=== PATIENT | female | born 1985 | race Caucasian/White ===

== ENCOUNTER 2024-06-28 18:13 | Emergency (ER) | payer BC ==
[~2024-06-28] VITALS: Ht 162.6 cm; Wt 131.1 kg
[2024-06-28 18:28] VITALS: BP 157/85; PULSE 80; RESP 22; TEMP 99.4; O2SAT 96
[2024-06-28 19:28] LABS: BILIRUBIN,URINE NEGATIVE (NEGATIVE); BLOOD, URINE 3+ (NEGATIVE); LEUKOCYTE ESTERASE ,URINE TRACE (NEGATIVE); NITRITE, URINE NEGATIVE (NEGATIVE); PROTEIN,URINE 2+ (NEGATIVE); UGLUCOSE NEGATIVE (NEGATIVE)
[2024-06-28 19:30] LABS: APPEARANCE,URINE BLOODY (CLEAR); COLOR,URINE BLOODY (YELLOW)
[2024-06-28 19:32] LABS: BACTERIA,URINE FEW /HPF (None Seen); CALCIUM OXALATE CRYSTALS,UR 0-10 /HPF (None Seen); RBC,URINE TOO NUMEROUS TO COUN /HPF (0-5); SQUAMOUS EPITHELIAL CELL,UR 4-10 (MOD) /LPF (0-3 (FEW))
[2024-06-28] MEDS ORDERED: ACET-8905 PO (20:19)
[2024-06-28] MEDS ORDERED: IBUP-2213 PO (20:19)
[2024-06-28] MEDS ORDERED: MEDR10TA PO (20:19)
[2024-06-28] MEDS ORDERED: CIPR500T4 PO (20:19)
[2024-06-28] MEDS: MORPHINE SULFATE 4 MG/ML SYR IM ONE (20:28)
== END 2024-06-28 20:29 | disposition home or self-care (01) ==
LOC: MED 18:13
DX: N39.0 Urinary tract infection, site not specified (principal); R03.0 Elevated blood-pressure reading, without diagnosis of hypertension
CPT/HCPCS: 76830; 81001; 81025; 87086; 96372; 99285; J2270; Q0092

== ENCOUNTER 2024-06-28 23:51 | Inpatient (IN) | payer BC, OTHER ==
[~2024-06-28] VITALS: Ht 162.6 cm; Wt 130.6 kg
[~2024-06-28 23:51] MED LIST: ACET-8905 PO; CIPR500T4 PO; IBUP-2213 PO; MEDR10TA PO
[2024-06-28 23:55] VITALS: BP 156/86; PULSE 90; RESP 24; O2SAT 97
[2024-06-29] VITALS (9 sets, daily range): BP systolic 129–138; BP diastolic 67–73; PULSE 83–109; RESP 18–20; TEMP 98.6–99.6; O2SAT 95–99
[2024-06-29] MEDS: NACL 0.9% 1,000 ML IV SCH ×2 (00:18→03:05)
[2024-06-29] MEDS: MORPHINE SULFATE 4 MG/ML SYR IVP ONE ×2 (00:21→02:33)
[2024-06-29] MEDS: LORazepam 2 MG/ML VIAL IVP ONE (00:22)
[2024-06-29 01:42] LABS: BASOPHILS # (AUTO) 0.1 K/uL (0.00-0.22); BASOPHILS % (AUTO) 0.6 % (0.0-2.0); EOSINOPHILS # (AUTO) 0.2 K/uL (0-0.4); EOSINOPHILS % (AUTO) 1.3 % (0.0-4.0); HEMOGLOBIN 9.3 g/dL (12.0-16.0); LYMPHOCYTES # (AUTO) 2.6 K/uL (2.5-16.5); LYMPHOCYTES % (AUTO) 16.6 % (20.5-51.1); MEAN CORPUSCULAR HEMOGLOBIN 18 pg (27-31); MEAN CORPUSCULAR HGB CONC 30 g/dL (33-37); MEAN CORPUSCULAR VOLUME 58.1 fL (80-94); MONOCYTES # (AUTO) 1.2 K/uL (0.8-1.0); MONOCYTES % (AUTO) 7.5 % (1.7-9.3); NEUTROPHILS # (AUTO) 11.6 K/uL (1.8-7.7); PLATELET COUNT (AUTO) 269 K/uL (140-450); RED BLOOD CELL COUNT(AUTO) 5.33 MIL/uL (4.20-5.40); RED CELL DISTRIBUTION WIDTH 19.9 % (11.6-13.7); WHITE BLOOD COUNT (AUTO) 15.7 K/uL (4.8-10.8)
[2024-06-29 01:53] LABS: ALBUMIN 3.1 g/dL (3.4-5.0); BILIRUBIN,DIRECT 0.1 mg/dL (0.0-0.3); TOTAL BILIRUBIN 0.3 mg/dL (0.0-1.0); TOTAL PROTEIN, SERUM 7.3 g/dL (6.4-8.2)
[2024-06-29] MEDS ORDERED: ONDANSETRON 4 MG/2 ML VIAL IVP PRN (03:05)
[2024-06-29] MEDS ORDERED: ALBUTEROL 0.083% 2.5 MG/3 ML NEBU INH PRN (03:05)
[2024-06-29] MEDS ORDERED: LORazepam 2 MG/ML VIAL IVP PRN (03:05)
[2024-06-29] MEDS ORDERED: cefTRIAXone 1,000 MG VIAL ONE (04:24)
[2024-06-29] MEDS: HYDROcodone/APAP 5/325 MG 1 TAB TAB PO PRN (05:00)
[2024-06-29] MEDS: TAMSULOSIN 0.4 MG CAP PO SCH (09:24)
[2024-06-29] MEDS: medroxyPROGESTERone 10 MG TAB PO SCH ×2 (09:24→13:25)
[2024-06-29] MEDS: MORPHINE SULFATE 2 MG/ML SYR IVP PRN (09:25)
[2024-06-29 14:59] LABS: APPEARANCE,URINE CLEAR (CLEAR); BILIRUBIN,URINE NEGATIVE (NEGATIVE); BLOOD, URINE 2+ (NEGATIVE); LEUKOCYTE ESTERASE ,URINE TRACE (NEGATIVE); NITRITE, URINE NEGATIVE (NEGATIVE); PROTEIN,URINE 2+ (NEGATIVE); UGLUCOSE NEGATIVE (NEGATIVE)
[2024-06-29 15:38] LABS: BACTERIA,URINE FEW /HPF (None Seen); MUCUS,URINE None Seen /LPF (None Seen); RBC,URINE TOO NUMEROUS TO COUN /HPF (0-5); SQUAMOUS EPITHELIAL CELL,UR 0-3 (FEW) /LPF (0-3 (FEW)); TRICHOMONAS,URINE None Seen /HPF (None Seen); WHITE BLOOD CELL CASTS,URINE None Seen /LPF (None Seen); YEAST,URINE None Seen /HPF (None Seen)
[2024-06-29 16:26] LABS: COLOR,URINE BLOODY (YELLOW)
[2024-06-30 01:15] VITALS: O2SAT 98
[2024-06-30 03:55] VITALS: BP 135/82; PULSE 84; RESP 18; TEMP 98.8; O2SAT 94
[2024-06-30 04:06] VITALS: O2SAT 96
[2024-06-30 05:30] LABS: BASOPHILS # (AUTO) 0.1 K/uL (0.00-0.22); BASOPHILS % (AUTO) 0.5 % (0.0-2.0); EOSINOPHILS % (AUTO) 0.2 % (0.0-4.0); HEMATOCRIT 28.7 % (36-48); HEMOGLOBIN 8.6 g/dL (12.0-16.0); LYMPHOCYTES # (AUTO) 1.4 K/uL (2.5-16.5); LYMPHOCYTES % (AUTO) 12.9 % (20.5-51.1); MEAN CORPUSCULAR HEMOGLOBIN 17 pg (27-31); MEAN CORPUSCULAR HGB CONC 30 g/dL (33-37); MEAN CORPUSCULAR VOLUME 57.2 fL (80-94); MONOCYTES % (AUTO) 9.2 % (1.7-9.3); NEUTROPHILS # (AUTO) 8.2 K/uL (1.8-7.7); NEUTROPHILS % (AUTO) 77.2 % (42.2-75.2); PLATELET COUNT (AUTO) 250 K/uL (140-450); RED BLOOD CELL COUNT(AUTO) 5.01 MIL/uL (4.20-5.40); WHITE BLOOD COUNT (AUTO) 10.6 K/uL (4.8-10.8)
[2024-06-30 05:45] LABS: ANION GAP 10.3 (8-16); CALCIUM 7.7 mg/dL (8.5-10.1); CARBON DIOXIDE 27.8 mmol/L (21-32); CREATININE 0.8 mg/dL (0.6-1.3); POTASSIUM 3.1 mmol/L (3.5-5.1)
[2024-06-30 08:00] VITALS: BP 109/59; PULSE 101; PULSE 103; RESP 20; TEMP 98.8; O2SAT 93; O2SAT 97
[2024-06-30 08:07] VITALS: PULSE 89; RESP 20; O2SAT 95
[2024-06-30] MEDS: POTASSIUM CHLORIDE 10 MEQ TABER PO SCH (11:23)
[2024-06-30] MEDS ORDERED: MEDR10TA PO (11:57)
[2024-06-30] MEDS ORDERED: AMOX-999 PO (11:58)
[2024-06-30] MEDS: ACETAMINOPHEN 325 MG TAB PO PRN (13:25)
[2024-06-30] MEDS: MAGNESIUM OXIDE 400 MG TAB PO SCH (17:05)
[2024-06-30 17:38] VITALS: BP 142/76; PULSE 96; RESP 18; TEMP 97.9
== END 2024-06-30 18:55 | disposition home or self-care (01) | DRG 760 ==
LOC: MED 23:51 → MTU 06-29 03:07
PROVIDERS: ADMIT Student in an Organized Health Care Education/Training Program; ATTEND Student in an Organized Health Care Education/Training Program
DX: N92.0 Excessive and frequent menstruation with regular cycle (principal); N39.0 Urinary tract infection, site not specified; E28.2 Polycystic ovarian syndrome; D64.9 Anemia, unspecified; E66.01 Morbid (severe) obesity due to excess calories
CPT/HCPCS: 36415; 80048; 80076; 81001; 83690; 83735; 85025; 87081; 87086; J0696; J2060; J2270; J7060